=== PATIENT | male | born 1950 | race Caucasian/White ===

== ENCOUNTER 2018-01-28 16:46 | Emergency (ER) | payer MEDICARE ==
--- NOTE | 2018-01-28 17:17 | ER Document Report ---
ED Medical Screen (RME) - General Chief Complaint: General Weakness Stated Complaint: WEAKNESS Time Seen by Provider: 01/28/18 17:10 Mode of Arrival: Ambulatory Information source: Patient TRAVEL OUTSIDE OF THE [place] IN LAST 30 DAYS: No - HPI Onset: Just prior to arrival Onset/Duration: Sudden - APPOX. 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 Quality of pain: No pain Associated Symptoms: Other - BLURRED VISION Exacerbated by: Denies Relieved by: Denies, Other - GRADUALLY RESOLVED SPONTANEOUSLY Similar symptoms previously: No Recently seen / treated by doctor: No - Related Data Allergies/Adverse Reactions: No Known Allergies Allergy (Unverified 01/28/18 16:48) Home Medications: fish oil, baby aspirin, zocor, isosorbide, flomax, levothyroxine, Metoprolol, nitro Past Medical History - General Information source: Patient - Social History Chew tobacco use (# tins/day): No Frequency of alcohol use: Occasional Drug Abuse: None Family history: Reviewed & Not Pertinent - Past Medical History Cardiac Medical History: Reports: Hx Coronary Artery Disease - "SPASMS", Hx Hypertension Pulmonary Medical History: Reports: None Neurological Medical History: Reports: None Endocrine Medical History: Reports: Hx Hypothyroidism Renal/ Medical History: Reports: None. 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 Past Surgical History: Reports: Hx Orthopedic Surgery, Hx Vascular Surgery Review of Systems - Review of Systems Constitutional: Weakness EENT: Blurred vision Cardiovascular: No symptoms reported Respiratory: No symptoms reported Gastrointestinal: No symptoms reported Genitourinary: No symptoms reported Musculoskeletal: No symptoms reported Skin: No symptoms reported Neurological/Psychological: See HPI. denies: Confusion, Paralysis, Headaches, Speech impairment, Numbness Physical Exam - Vital signs Vitals: Temp Pulse Resp BP Pulse Ox 97.9 F 70 20 149/77 H 100 01/28/18 16:51 01/28/18 16:51 01/28/18 16:51 01/28/18 16:51 01/28/18 16:51 Interpretation: Hypertensive. No: Tachycardic, Tachypneic, Febrile - General General appearance: Appears well, Alert In distress: None - HEENT Head: Normocephalic Eyes: Normal Conjunctiva: Normal Ears: Normal Nasal: Normal Mouth/Lips: Normal Mucous membranes: Normal Neck: Normal. No: Carotid bruit - Respiratory Respiratory status: No respiratory distress Breath sounds: Normal - Cardiovascular Rhythm: Regular Heart sounds: Normal auscultation Murmur: No - Abdominal Inspection: Normal Distension: No distension - Extremities General upper extremity: No: Normal inspection - SCARRING & ATROPHY L. UPPER EXTREM. General lower extremity: Normal inspection - Neurological Neuro grossly intact: Yes Cognition: Normal Orientation: AAOx4 - Psychological Associated symptoms: Normal affect, Normal mood - Skin Skin Temperature: Warm Skin Moisture: Dry Skin Color: Normal Skin Turgor: Elastic Course - Vital Signs Vital signs: Temp Pulse Resp BP Pulse Ox 97.9 F 70 20 149/77 H 100 01/28/18 16:51 01/28/18 16:51 01/28/18 16:51 01/28/18 16:51 01/28/18 16:51
[2018-01-28 17:53] LABS: ABSOLUTE BASOPHILS # (AUTO) 0.1 10^3/uL (0.0-0.2); ABSOLUTE EOSINOPHILS # (AUTO) 0.3 10^3/uL (0.0-0.6); ABSOLUTE LYMPHOCYTES (AUTO) 1.8 10^3/uL (0.5-4.7); ABSOLUTE MONOCYTES (AUTO) 0.5 10^3/uL (0.1-1.4); BASOPHILS % (AUTO) 0.9 % (0-2); EOSINOPHILS % (AUTO) 4.6 % (0-6); HEMATOCRIT 45.7 % (37.9-51.0); HEMOGLOBIN 15.5 g/dL (13.5-17.0); MEAN CORPUSCULAR HEMOGLOBIN 31.4 pg (27.0-33.4); MEAN CORPUSCULAR HGB CONC 33.9 g/dL (32.0-36.0); MEAN CORPUSCULAR VOLUME 93 fl (80-97); MONOCYTES % (AUTO) 8.6 % (3-13); PLATELET COUNT 237 10^3/uL (150-450); RED BLOOD COUNT 4.93 10^6/uL (4.35-5.55); RED CELL DISTRIBUTION WIDTH 13.4 % (11.5-14.0); SEGMENTED NEUTROPHILS % (AUTO) 53.9 % (42-78); TOTAL CELLS COUNTED % (AUTO) 100 %; WHITE BLOOD COUNT 5.6 10^3/uL (4.0-10.5)
--- NOTE | 2018-01-28 18:03 | RADIOLOGY REPORT (SQ) ---
EXAM DESCRIPTION: CT HEAD WITHOUT COMPLETED DATE/TIME: 01/28/2018 5:50 pm REASON FOR STUDY: TRANSIENT VISOIN CHANGES, ? TIA COMPARISON: None. TECHNIQUE: Axial images acquired through the brain without intravenous contrast. Images reviewed wi th bone, brain and subdural windows. Additional sagittal and coronal reconstructions were generated. Images stored on PACS. All CT scanners at this facility use dose modulation, iterative reconstruction, and/or weight based d osing when appropriate to reduce radiation dose to as low as reasonably achievable (ALARA). [facility]: Dose Right [facility]: CareDose [facility]: Dose Right [facility]: Teradose 4D [facility]: 5app RADIATION DOSE: CT Rad equipment meets quality standard of care and radiation dose reduction techniq ues were employed. CTDIvol: 53.2 mGy. DLP: 1017 mGy-cm. mGy. LIMITATIONS: None. FINDINGS: VENTRICLES: Normal size and contour. CEREBRUM: No masses. No hemorrhage. No midline shift. No evidence for acute infarction. Few scatte red areas of low density in the white matter most likely chronic small vessel ischemic changes. CEREBELLUM: No masses. No hemorrhage. No alteration of density. No evidence for acute infarction. EXTRAAXIAL SPACES: No fluid collections. No masses. ORBITS AND GLOBE: No intra- or extraconal masses. Normal contour of globe without masses. CALVARIUM: No fracture. PARANASAL SINUSES: No fluid or mucosal thickening. SOFT TISSUES: No mass or hematoma. OTHER: No other significant finding. IMPRESSION: No acute findings. Minimal small vessel ischemic change in the bifrontal white matter. EVIDENCE OF ACUTE STROKE: NO. COMMENT: Quality ID # [id number]: Final reports with documentation of one or more dose reduction techniques (e.g., Automated exposure control, adjustment of the mA and/or kV according to patient size, use of iterative reconstruction technique) TECHNICAL DOCUMENTATION: JOB ID: [id number] [employer]- All Rights Reserved Reading location - IP/workstation name: [email or web address]
[2018-01-28 18:15] LABS: ALANINE AMINOTRANSFERASE 68 U/L (21-72); ALBUMIN 5.2 g/dL (3.5-5.0); ALKALINE PHOSPHATASE 51 U/L (38-126); ANION GAP 10 (5-19); ASPARTATE AMINO TRANSFERASE 51 U/L (17-59); BILIRUBIN,DIRECT 0.3 mg/dL (0.0-0.4); BILIRUBIN,TOTAL 0.4 mg/dL (0.2-1.3); BLOOD UREA NITROGEN 13 mg/dL (7-20); CALCIUM 10.4 mg/dL (8.4-10.2); CARBON DIOXIDE 33 mmol/L (22-30); CHLORIDE 98 mmol/L (98-107); CREATINE KINASE 634 U/L (55-170); GLUCOSE 89 mg/dL (75-110); POTASSIUM 4.9 mmol/L (3.6-5.0); TOTAL PROTEIN 8.4 g/dL (6.3-8.2)
[2018-01-28 18:26] LABS: CREATINE KINASE MB 7.94 ng/mL (<4.55)
[2018-01-28 18:28] LABS: TROPONIN I < 0.012 ng/mL
[2018-01-28] MEDS ORDERED: NORMAL SALINE 1000 ML 500 ML IV ONE (18:44)
--- NOTE | 2018-01-28 21:30 | ER Document Report ---
ED General - General Mode of Arrival: Ambulatory Information source: Patient TRAVEL OUTSIDE OF THE [place] IN LAST 30 DAYS: No - HPI Patient complains to provider of: Generalized weakness and dizziness Onset: This afternoon - 1400 Associated symptoms: Other - see notes above - Related Data Home Medications: fish oil, baby aspirin, zocor, isosorbide, flomax, levothyroxine, Metoprolol, nitro <OTIS SALDANA - Last Filed: 01/29/18 00:20> <GLENDA SOLORZANO - Last Filed: 01/29/18 00:35> - General Chief Complaint: General Weakness Stated Complaint: WEAKNESS Time Seen by Provider: 01/28/18 17:10 Notes: 67 year old male with history of left hand nerve damage and BPH presents to the ED complaining of generalized weakness and dizziness that started at 1400 this afternoon. Patient reports that symptoms started when he began to see floaters to the bilateral eyes; left greater than right. Floaters stopped after 10 minutes. Patient then began feeling dizzy and weak. [facility] and was told he might be having TIAs and to go to the ED. Patient denies slurry speech, decrease in movement, eye pain, or abnormal vision. PCP: Dr. Ash [facility] (OTIS SALDANA) - Related Data Allergies/Adverse Reactions: No Known Allergies Allergy (Unverified 01/28/18 16:48) Past Medical History - General Information source: Patient - Social History Smoking Status: Never Smoker Chew tobacco use (# tins/day): No Frequency of alcohol use: Occasional Drug Abuse: None Patient has suicidal ideation: No Patient has homicidal ideation: No - Past Medical History Cardiac Medical History: Reports: Hx Coronary Artery Disease - "SPASMS", Hx Hypercholesterolemia, Hx Hypertension Pulmonary Medical History: Reports: None Neurological Medical History: Reports: None Endocrine Medical History: Reports: Hx Hypothyroidism Renal/ Medical History: Reports: None. 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 Past Surgical History: Reports: Hx Orthopedic Surgery, Hx Vascular Surgery <OTIS SALDANA - Last Filed: 01/29/18 00:20> - Social History Lives with: Family Family History: Reviewed & Not Pertinent <GLENDA SOLORAZNO - Last Filed: 01/29/18 00:35> Review of Systems - Review of Systems Constitutional: No symptoms reported EENT: No symptoms reported, Other - floaters to the bilateral eyes. denies: Eye pain Cardiovascular: See HPI, Dizziness Respiratory: No symptoms reported Gastrointestinal: No symptoms reported Genitourinary: No symptoms reported Male Genitourinary: No symptoms reported Musculoskeletal: No symptoms reported Skin: No symptoms reported Hematologic/Lymphatic: No symptoms reported Neurological/Psychological: No symptoms reported, Weakness. denies: Speech impairment -: Yes All other systems reviewed and negative <OTIS SALDANA - Last Filed: 01/29/18 00:20> Physical Exam - General General appearance: Alert In distress: None - HEENT Head: Normocephalic, Atraumatic Eyes: Normal Extraocular movements intact: Yes Pupils: PERRL - Respiratory Respiratory status: No respiratory distress Breath sounds: Normal - Cardiovascular Rhythm: Regular Heart sounds: Normal auscultation - Abdominal Inspection: Normal - Extremities General upper extremity: Other - Scars to the left upper extremity consistent with surgical history General lower extremity: Normal inspection, Normal weight bearing - Neurological Neuro grossly intact: Yes Cognition: Normal Orientation: AAOx4 Cranial nerves: Normal Cerebellar coordination: Normal - Psychological Associated symptoms: Normal affect, Normal mood - Skin Skin Temperature: Warm Skin Moisture: Dry Skin Color: Normal <OTIS SALDANA - Last Filed: 01/29/18 00:20> <GLENDA SOLORZANO - Last Filed: 01/29/18 00:35> - Vital signs Vitals: Temp Pulse Resp BP Pulse Ox 97.9 F 70 20 149/77 H 100 01/28/18 16:51 01/28/18 16:51 01/28/18 16:51 01/28/18 16:51 01/28/18 16:51 - Neurological Notes: Normal balance and romberg. (OTIS SALDANA) Course - Laboratory Result Diagrams: 01/28/18 17:36 01/28/18 17:36 <OTIS SALDANA - Last Filed: 01/29/18 00:20> - Laboratory Result Diagrams: 01/28/18 17:36 05/02/18 17:36 <GLENDA SOLORZANO - Last Filed: 01/29/18 00:35> - Re-evaluation Re-evalutation: 01/29/18 00:33 Patient is a 67-year-old male who had come to the emergency department because he had been seeing what look like a kaleidoscope of colors. That lasted a few minutes and is since resolved. The patient felt generalized weakness but no focal weakness was noted by him or his family member. Patient is completely neurologically intact. He is able to ambulate without difficulty and his balance is within normal limits. He has no complaints and his visual johnston are intact. No acute findings on CT or blood work. Troponin is negative 2. Patient is feeling well and would like to go home to follow-up with his doctor. The only abnormality was a slightly elevated CK . Patient stated that he felt much better after he received fluids here. Stable for discharge. Return if any worsening or concerning symptoms. Understands and agrees with plan. ( GLENDA SOLORZANO) - Vital Signs Vital signs: Temp Pulse Resp BP Pulse Ox 97.9 F 86 14 144/84 H 98 01/28/18 16:51 01/28/18 21:00 01/28/18 22:01 01/28/18 22:01 01/28/18 21:00 - Laboratory Laboratory results interpreted by me: 01/28/18 01/28/18 17:36 17:36 Carbon Dioxide 33 H Calcium 10.4 H Creatine Kinase 634 H CK-MB (CK-2) 7.94 H Total Protein 8.4 H Albumin 5.2 H Discharge <OTIS SALDANA - Last Filed: 01/29/18 00:20> <GLENDA SOLORZANO - Last Filed: 01/29/18 00:35> - Discharge Clinical Impression: Weakness, Visual disturbance Condition: Stable Disposition: HOME, SELF-CARE Instructions: Weakness ([facility]) Additional Instructions: Please return to the emergency department if you have any worsening or concerning symptoms. Your blood work appeared normal except for some mild dehydration. CT of your head did not show any acute findings. Please follow- up with your doctor this week. Scribe Attestation: 01/29/18 00:35 I personally performed the services described in the documentation, reviewed and edited the documentation which was dictated to the scribe in my presence, and it accurately records my words and actions. (GLENDA SOLORZANO) Scribe Documentation - Scribe Written by Scribe:: Delonte Li, [id number] acting as scribe for :: Jody <OTIS SALDANA - Last Filed: 01/29/18 00:20>
--- NOTE | 2018-01-28 21:42 | RADIOLOGY REPORT (SQ) ---
EXAM DESCRIPTION: CHEST SINGLE VIEW COMPLETED DATE/TIME: 01/28/2018 9:27 pm REASON FOR STUDY: AMS COMPARISON: None. EXAM PARAMETERS: NUMBER OF VIEWS: One view. TECHNIQUE: Single frontal radiographic view of the chest acquired. RADIATION DOSE: NA LIMITATIONS: None. FINDINGS: LUNGS AND PLEURA: No opacities, masses or pneumothorax. No pleural effusion. MEDIASTINUM AND HILAR STRUCTURES: No masses. Contour normal. HEART AND VASCULAR STRUCTURES: Heart normal in size. Normal vasculature. BONES: No acute findings. HARDWARE: None in the chest. OTHER: No other significant finding. IMPRESSION: NO ACUTE RADIOGRAPHIC FINDING IN THE CHEST. TECHNICAL DOCUMENTATION: JOB ID: [id number] [employer]- All Rights Reserved Reading location - IP/workstation name: [email or web address]
[2018-01-28 22:12] VITALS: BP 144/84
[2018-01-28 23:11] LABS: APPEARANCE,URINE CLEAR; BILIRUBIN,URINE NEGATIVE (NEGATIVE); COLOR,URINE STRAW; GLUCOSE, URINE NEGATIVE (NEGATIVE); KETONES,URINE NEGATIVE (NEGATIVE); LEUKOCYTE ESTERASE,URINE NEGATIVE (NEGATIVE); NITRITE,URINE NEGATIVE (NEGATIVE); PROTEIN,URINE NEGATIVE (NEGATIVE); URINE SPECIFIC GRAVITY 1.008; UROBILINOGEN,URINE NEGATIVE mg/dL (<2.0)
--- NOTE | 2018-01-28 23:38 | EKG REPORT ---
SEVERITY:- OTHERWISE NORMAL ECG - SINUS RHYTHM LEFT AXIS DEVIATION : Confirmed by: Brock Wiley 28-Jan-2018 23:37:21
== END 2018-01-29 00:07 | disposition home or self-care (01) ==
LOC: ER 16:46
DX: R53.1 Weakness (principal); H43.393 Other vitreous opacities, bilateral; R42 Dizziness and giddiness; I25.10 Atherosclerotic heart disease of native coronary artery without angina pectoris
CPT/HCPCS: 93005; 99285; 96360; 36415; 82553; 82550; 85025; 80053; 81001; 84484; 71045; 70450; 93010; J7030

== ENCOUNTER → 2018-04-09 | Outpatient (CLI) | payer MEDICARE | LOC: RAD 14:30 | PROVIDERS: ATTEND Urology | DX: Z53.9 Procedure and treatment not carried out, unspecified reason (principal) | CPT/HCPCS: 82565 ==